=== PATIENT | female | born 1990 | race Caucasian/White ===

== ENCOUNTER 2020-05-09 20:08 | Emergency (ER) | payer OTHER ==
[~2020-05-09] VITALS: Ht 167.6 cm; Wt 102.1 kg
== END 2020-05-09 21:44 | disposition home or self-care (01) ==
LOC: ER 20:08
DX: K04.7 Periapical abscess without sinus (principal)

== ENCOUNTER 2021-01-18 17:45 | Emergency (ER) | payer OTHER ==
[~2021-01-18] VITALS: Ht 170.2 cm; Wt 99.3 kg
== END 2021-01-18 22:59 | disposition home or self-care (01) ==
LOC: ER 17:45
DX: B34.9 Viral infection, unspecified (principal); U07.1 COVID-19

== ENCOUNTER → 2021-07-10 | Emergency (ER) | payer OTHER ==
[~2021-07-10] VITALS: Ht 167.6 cm; Wt 102.5 kg
[~2021-07-10] MED LIST: METFORMIN HCL1000 M2 PO; MOBIC15 MG PO
== END | disposition home or self-care (01) ==
LOC: ER 22:01
DX: E11.8 Type 2 diabetes mellitus with unspecified complications (principal)